=== PATIENT | female | born 1935 | race Caucasian/White ===

== ENCOUNTER 2016-06-20 08:18 | Outpatient (CLI) | payer MEDICARE, BC | END 2016-06-20 08:19 | disposition home or self-care (01) | DX: I48.0 Paroxysmal atrial fibrillation (principal); R42 Dizziness and giddiness; I95.0 Idiopathic hypotension; I10 Essential (primary) hypertension; I42.9 Cardiomyopathy, unspecified; Z95.0 Presence of cardiac pacemaker; E78.5 Hyperlipidemia, unspecified; J34.89 Other specified disorders of nose and nasal sinuses; R55 Syncope and collapse ==

== ENCOUNTER 2016-06-20 08:21 | Outpatient (CLI) | payer MEDICARE, BC | END 2016-06-20 08:22 | disposition home or self-care (01) | DX: I48.91 Unspecified atrial fibrillation (principal) ==

== ENCOUNTER 2016-07-18 10:55 | Outpatient (CLI) | payer MEDICARE, BC | END 2016-07-18 10:56 | disposition home or self-care (01) | DX: I48.91 Unspecified atrial fibrillation (principal) ==

== ENCOUNTER 2016-08-14 08:00 | Outpatient (CLI) | payer MEDICARE, BC | END 2016-08-14 08:01 | disposition home or self-care (01) | DX: I48.91 Unspecified atrial fibrillation (principal) ==

== ENCOUNTER 2016-09-18 08:00 | Outpatient (CLI) | payer MEDICARE, BC | END 2016-09-18 08:01 | disposition home or self-care (01) | DX: I48.91 Unspecified atrial fibrillation (principal) ==

== ENCOUNTER 2016-09-18 08:50 | Outpatient (CLI) | payer MEDICARE, BC | END 2016-09-18 08:51 | disposition home or self-care (01) | DX: I42.9 Cardiomyopathy, unspecified (principal); I10 Essential (primary) hypertension; R06.00 Dyspnea, unspecified; I48.0 Paroxysmal atrial fibrillation; E78.5 Hyperlipidemia, unspecified; Z95.0 Presence of cardiac pacemaker; R42 Dizziness and giddiness; R55 Syncope and collapse ==

== ENCOUNTER 2016-10-15 09:35 | Outpatient (CLI) | payer MEDICARE, BC | END 2016-10-15 09:36 | disposition home or self-care (01) | DX: I48.91 Unspecified atrial fibrillation (principal) ==

== ENCOUNTER 2016-10-22 15:22 | Outpatient (CLI) | payer MEDICARE, BC | END 2016-10-22 15:23 | disposition home or self-care (01) | DX: I42.9 Cardiomyopathy, unspecified (principal); I48.0 Paroxysmal atrial fibrillation; R06.00 Dyspnea, unspecified; I10 Essential (primary) hypertension; E78.5 Hyperlipidemia, unspecified; Z95.0 Presence of cardiac pacemaker; R42 Dizziness and giddiness; R55 Syncope and collapse ==

== ENCOUNTER 2016-11-13 09:57 | Outpatient (CLI) | payer MEDICARE, BC | END 2016-11-13 09:58 | disposition home or self-care (01) | DX: I48.91 Unspecified atrial fibrillation (principal) ==

== ENCOUNTER 2016-12-11 08:00 | Outpatient (CLI) | payer MEDICARE, BC | END 2016-12-11 08:01 | disposition home or self-care (01) | LOC: LAB.N 08:00 | PROVIDERS: ATTEND Internal Medicine | DX: I48.91 Unspecified atrial fibrillation (principal) | CPT/HCPCS: 85610 ==

== ENCOUNTER 2016-12-22 13:43 | Outpatient (CLI) | payer MEDICARE, BC | END 2016-12-22 13:44 | disposition home or self-care (01) | LOC: LAB 13:43 | PROVIDERS: ATTEND Internal Medicine | DX: R07.2 Precordial pain (principal) | CPT/HCPCS: 36415; 84484 ==

== ENCOUNTER 2017-01-26 08:00 | Outpatient (CLI) | payer MEDICARE, BC | END 2017-01-26 08:01 | disposition home or self-care (01) | LOC: LAB.N 08:00 | PROVIDERS: ATTEND Internal Medicine | DX: I48.91 Unspecified atrial fibrillation (principal) | CPT/HCPCS: 85610 ==

== ENCOUNTER 2017-02-11 12:35 | Emergency (ER) | payer MEDICARE, BC ==
--- NOTE | 2017-02-11 13:11 | ED Physician Documentation ---
PD HPI CHEST PAIN - Stated complaint Stated Complaint: CHILLS - Chief complaint Chief Complaint: Fever - History obtained from History obtained from: Patient - History of Present Illness Timing - onset: Today (onset of chills, feverish, general weakness, with some feeling pain left/central chest. Had pacer replaced 2 days ago in [place], Dr. Connell. [place] okay yesterday and this morning.) Timing - onset during: Light activity Timing - duration: Hours (3) Timing - details: Abrupt onset, Waxing and waning Quality: Aching, Pain Location: Substernal, Left chest Radiation: No: Jaw, Neck, Back, Abdominal, Left upper extremity, Right upper extremity, Other Worsened by: Inspiration, Movement Associated symptoms: Shortness of air. No: Nausea, Vomiting, Feeling faint / dizzy, Cough Similar symptoms before: Has not had sx before Recently seen: Clinic, Surgery (pacemaker placed 2 days ago) Review of Systems Constitutional: reports: Fever (subjective; friend took her temp and it was 99.) , Myalgias Nose: denies: Rhinorrhea / runny nose, Congestion Throat: denies: Sore throat Respiratory: reports: Cough (mild today). denies: Wheezing GI: denies: Abdominal Pain, Nausea, Vomiting Skin: reports: Other (surgical site left chest for recent pacer.). denies: Rash Musculoskeletal: denies: Extremity swelling Neurologic: reports: Generalized weakness. 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: Hysterectomy Cardiovascular: Pacemaker HEENT: Cataracts - Present Medications Home Medications: Ambulatory Orders Medication Instructions Recorded Confirmed Warfarin [Coumadin] 5 mg PO DAILY 06/17/13 02/11/17 Carvedilol 12.5 mg PO QID 10/24/15 02/11/17 Calcium Carbonate [Antacid] 1,000 mg PO BID 11/22/15 02/11/17 Cholecalciferol (Vitamin D3) 1,000 unit PO DAILY 11/22/15 02/11/17 [Vitamin D3] Potassium Chloride [Micro-K] 3 tab PO DAILY 11/22/15 02/11/17 Benzonatate [Tessalon] 100 mg PO TID PRN #25 capsule 03/23/16 02/11/17 Dexamethasone [Decadron] 4 mg PO DAILY #5 tablet 03/23/16 02/11/17 Doxycycline Hyclate 100 mg PO BID #14 tablet 03/23/16 02/11/17 HYDROcod/ACETAM 5/325 [[place] 5/325] 1 tab PO Q6H PRN #15 tablet 02/11/17 - Allergies Allergies/Adverse Reactions: Allergies Allergy/AdvReac Type Severity Reaction Status Date / Time clindamycin Allergy Intermediate swelling Verified 06/17/13 14:14 Penicillins Allergy Intermediate swelling, Verified 06/17/13 14:14 SOB streptomycin [Streptomycin] Allergy Intermediate swelling Verified 06/17/13 14: 14 Sulfa (Sulfonamide Allergy Intermediate swelling Verified 06/17/13 14:17 Antibiotics) Tetanus Vaccines and Toxoid Allergy Intermediate swelling Verified 06/17/13 14: 17 tetracycline [Tetracycline] Allergy Intermediate swelling Verified 06/17/13 14: 14 erythromycin base Allergy Edema Verified 10/24/15 07:04 - Social History Does the pt smoke?: No Smoking Status: Never smoker PD ED PE NORMAL - Vitals Vital signs reviewed: Yes - General General: Alert and oriented X 3, Well developed/nourished - HEENT HEENT: Ears normal, Moist mucous membranes, Pharynx benign - Neck Neck: Supple, no meningeal sign, No adenopathy - Cardiac Cardiac: RRR, No murmur - Respiratory Respiratory: Clear bilaterally, Other (left chest wall with pacer pocket having mild bruising and warmth, not significantly red. No drainage. Local tenderness. ) - Abdomen Abdomen: Soft, Non tender - Derm Derm: Normal color, Warm and dry - Extremities Extremities: No tenderness to palpate, No edema, No calf tenderness / cord - Neuro Neuro: Alert and oriented X 3, No motor deficit, Normal speech Results - Vitals Vitals: Vital Signs - 24 hr 02/11/17 02/11/17 02/11/17 13:03 13:30 15:27 Temperature 37.5 C Heart Rate 60 60 Respiratory 22 16 Rate Blood Pressure 148/65 H O2 Saturation 100 95 02/11/17 02/11/17 15:29 16:20 Temperature 37.1 C Heart Rate 61 Respiratory 18 Rate Blood Pressure 148/66 H 144/69 H O2 Saturation 95 Oxygen O2 Source Room air - Labs Labs: Laboratory Tests 02/11/17 02/11/17 02/11/17 15:00 15:00 15:00 WBC 8.7 RBC 4.34 Hgb 12.7 Hct 38.2 MCV 88.0 MCH 29.2 MCHC 33.2 RDW 13.7 Plt Count 166 MPV 9.3 Neut # 7.6 H Lymph # 0.5 L [place] # 0.5 Eos # 0.0 Baso # 0.0 Absolute Nucleated RBC 0.00 Nucleated RBCs 0.0 ESR PT 30.5 H INR 2.7 H Sodium 137 Potassium 3.6 Chloride 103 Carbon Dioxide 26 Anion Gap 8.0 BUN 18 Creatinine 0.8 Estimated GFR (MDRD) 69 L Glucose 110 H Calcium 8.8 Magnesium 1.8 Total Bilirubin 2.4 H AST 27 ALT 20 Alkaline Phosphatase 71 C-Reactive Protein < 1.0 Total Protein 7.0 Albumin 4.3 Globulin 2.7 Albumin/Globulin Ratio 1.6 Lipase 24 02/11/17 15:00 WBC RBC Hgb Hct MCV MCH MCHC RDW Plt Count MPV Neut # Lymph # [place] # Eos # Baso # Absolute Nucleated RBC Nucleated RBCs ESR 16 PT INR Sodium Potassium Chloride Carbon Dioxide Anion Gap BUN Creatinine Estimated GFR (MDRD) Glucose Calcium Magnesium Total Bilirubin AST ALT Alkaline Phosphatase C-Reactive Protein Total Protein Albumin Globulin Albumin/Globulin Ratio Lipase - Rads (name of study) chest Radiology: Prelim report reviewed, EMP read contemporaneously (no acute process) PD MEDICAL DECISION MAKING - ED course Complexity details: reviewed results, re-evaluated patient (she is doing okay, given some pain meds. Discussed with her to want to see if worsening symptoms or just improve (more inflammation or side effect of quinolone). She is okay going home and f/u with PMD or here in a day. ), considered differential, d/w patient, d/w home energy consultant supervisor (Dr. Connell, surgeon, cell, who said to consider OBS if concerned about general condition, otherwise to see if further symptoms in next day. ) Departure - Departure Disposition: 01 Home, Self Care Clinical Impression: Pleuritic chest pain, Status post placement of cardiac pacemaker Condition: Stable Record reviewed to determine appropriate education?: Yes Follow-Up: Salvador Webster MD [Primary Care Provider] - Prescriptions: HYDROcod/ACETAM 5/325 [[place] 5/325] 1 tab PO Q6H PRN #15 tablet PRN Reason: Pain Comments: Discontinue the levofloxacin antibiotic in case you are having some reaction to that. The low-grade temperature elevation this early on after the procedure may be more indicative of an inflammatory response. No signs of obvious infection at this point, but want to watch for evolving symptoms. Continue your other usual medications. Add Tylenol or hydrocodone for pain if needed. Recheck here in the ER or Dr. Hylton office tomorrow or the next day at the latest. Return sooner if you have higher fever, worse pain, trouble breathing, other illness such as vomiting or diarrhea. Discharge Date/Time: 02/11/17 16:20
--- NOTE | 2017-02-11 14:27 | XRAY Preliminary Report ---
Exam: XR Chest 2 View PA/LAT IMPRESSION: Chronic findings. No acute disease. [facility] SITE ID: [id number]
--- NOTE | 2017-02-11 14:29 | XRAY Report ---
EXAM: CHEST RADIOGRAPHY EXAM DATE: 02/11/2017 01:55 PM. CLINICAL HISTORY: Feverish/chills, pacer placed 2 days ago. COMPARISON: 03/23/2016. TECHNIQUE: 2 views. FINDINGS: Lungs/Pleura: Hyperexpanded with flattened diaphragm and coarse lung markings. No definite localized infiltrate, consolidation, effusion, or pneumothorax. Mediastinum: Mild cardiomegaly, probably unchanged. Upper lobe vessels not distended. Other: Permanent pacemaker on the left with intact leads extending to expected locations of right atr ium and right ventricle. Degenerative and other chronic findings. IMPRESSION: Chronic findings. No acute disease. [facility] Referring Provider Line: [phone] SITE ID: [id number]
[2017-02-11 15:08] LABS: BASOPHILS % (AUTO) 0.3 %; EOSINOPHILS % (AUTO) 0.5 %; HCT - HEMATOCRIT 38.2 % (37.0-47.0); HGB - HEMOGLOBIN 12.7 g/dL (12.0-16.0); LYMPHOCYTES # (AUTO) 0.5 10^3/uL (1.5-3.5); LYMPHOCYTES % (AUTO) 6.1 %; MEAN CORPUSCULAR HEMOGLOBIN 29.2 pg (27.0-31.0); MEAN CORPUSCULAR HGB CONC 33.2 g/dL (32.0-36.0); MEAN PLATELET VOLUME 9.3 fL (7.9-10.8); MONOCYTES # (AUTO) 0.5 10^3/uL (0.0-1.0); MONOCYTES % (AUTO) 5.5 %; NEUTROPHILS # (AUTO) 7.6 10^3/uL (1.5-6.6); NEUTROPHILS % (AUTO) 87.6 %; RED BLOOD COUNT 4.34 10^6/uL (4.20-5.40); RED CELL DISTRIBUTION WIDTH 13.7 % (12.0-15.0); UNCORRECTED WHITE BLOOD COUNT 8.7 x10^3/uL; WHITE BLOOD COUNT 8.7 x10^3/uL (4.8-10.8)
[2017-02-11 15:19] LABS: INR 2.7 (0.8-1.2); PT - PROTHROMBIN TIME 30.5 secs (9.9-12.6)
[2017-02-11] MEDS ORDERED: HYDROcod/ACETAM 5/325 MG TABLET PO STA (15:19)
[2017-02-11 15:25] LABS: ALBUMIN/GLOBULIN RATIO 1.6 (1.0-2.2); BILIRUBIN,TOTAL 2.4 mg/dL (0.2-1.0); BUN - BLOOD UREA NITROGEN 18 mg/dL (6-20); CALCIUM 8.8 mg/dL (8.5-10.3); CARBON DIOXIDE - CO2 26 mmol/L (21-32); CHLORIDE 103 mmol/L (101-111); CREATININE 0.8 mg/dL (0.4-1.0); GFR - MDRD 69 (>89); GLUCOSE 110 mg/dL (70-100); LIPASE 24 U/L (22-51); MAGNESIUM 1.8 mg/dL (1.7-2.8); POTASSIUM 3.6 mmol/L (3.5-5.0); SODIUM 137 mmol/L (135-145)
[2017-02-11] MEDS ORDERED: HYDROcod/ACETAM 5/325 MG TABLET ONE (15:26)
[2017-02-11] MEDS ORDERED: KETOROLAC 60 MG/2 ML VIAL IVP STA (15:38)
[2017-02-11] MEDS ORDERED: KETOROLAC 60 MG/2 ML VIAL IM STA (15:45)
[2017-02-11] MEDS ORDERED: KETOROLAC 30 MG/ML VIAL ONE (15:50)
[2017-02-11 16:20] VITALS: BP 144/69
== END 2017-02-11 16:20 | disposition home or self-care (01) ==
LOC: ED 12:35
DX: R07.81 Pleurodynia (principal); Z95.0 Presence of cardiac pacemaker; I10 Essential (primary) hypertension; I48.91 Unspecified atrial fibrillation; Z79.01 Long term (current) use of anticoagulants; M19.90 Unspecified osteoarthritis, unspecified site
CPT/HCPCS: 36415; 71020; 80053; 83690; 83735; 85025; 85610; 85651; 86140; 87040; 93005; 96372; 99283; 99284; A9270

== ENCOUNTER 2017-03-05 16:35 | Outpatient (CLI) | payer MEDICARE, BC ==
[2017-03-05 18:27] LABS: CALCIUM 8.6 mg/dL (8.5-10.3); CREATININE 0.8 mg/dL (0.4-1.0); POTASSIUM 4.2 mmol/L (3.5-5.0)
[2017-03-05 18:36] LABS: BASOPHILS % (AUTO) 0.5 %; EOSINOPHILS # (AUTO) 0.1 10^3/uL (0.0-0.7); EOSINOPHILS % (AUTO) 0.7 %; HCT - HEMATOCRIT 37.4 % (37.0-47.0); HGB - HEMOGLOBIN 12.1 g/dL (12.0-16.0); LYMPHOCYTES % (AUTO) 12.5 %; MEAN CORPUSCULAR HEMOGLOBIN 29.1 pg (27.0-31.0); MEAN CORPUSCULAR HGB CONC 32.3 g/dL (32.0-36.0); MEAN CORPUSCULAR VOLUME 90.1 fL (81.0-99.0); MEAN PLATELET VOLUME 9.9 fL (7.9-10.8); MONOCYTES # (AUTO) 0.8 10^3/uL (0.0-1.0); MONOCYTES % (AUTO) 9.6 %; NEUTROPHILS # (AUTO) 6.2 10^3/uL (1.5-6.6); NEUTROPHILS % (AUTO) 76.7 %; NUCLEATED RED BLOOD CELLS AUTO 0.1 /100WBC; RED BLOOD COUNT 4.15 10^6/uL (4.20-5.40); RED CELL DISTRIBUTION WIDTH 13.3 % (12.0-15.0)
== END 2017-03-05 16:36 | disposition home or self-care (01) ==
LOC: LAB.R 16:35
PROVIDERS: ATTEND Internal Medicine
DX: R50.9 Fever, unspecified (principal)
CPT/HCPCS: 80048; 85025; 87275; 87276

== ENCOUNTER 2017-03-12 12:01 | Outpatient (CLI) | payer MEDICARE, BC ==
--- NOTE | 2017-03-12 18:05 | XRAY Report ---
TWO VIEW CHEST: 03/12/2017 CLINICAL INDICATION: Ongoing fever. COMPARISON: 02/11/2017 Frontal and lateral views of the chest demonstrate an enlarged cardiac silhouette. Left subclavian d ual chamber pacemaker is stable. There has been interval development of a left basilar infiltrate wi th small left effusion. No pneumothorax is present. IMPRESSION: NEW LEFT BASILAR INFILTRATE WITH SMALL LEFT EFFUSION. JOB #: [id number] EXT JOB #:[id number]
== END 2017-03-12 12:02 | disposition home or self-care (01) ==
LOC: DI 12:01
PROVIDERS: ATTEND Internal Medicine
DX: I48.91 Unspecified atrial fibrillation (principal); R91.8 Other nonspecific abnormal finding of lung field; J90 Pleural effusion, not elsewhere classified; Z95.0 Presence of cardiac pacemaker
CPT/HCPCS: 71020; 85610

== ENCOUNTER 2017-03-16 14:46 | Outpatient (CLI) | payer MEDICARE, BC | END 2017-03-16 14:47 | disposition home or self-care (01) | LOC: LAB.N 14:46 | PROVIDERS: ATTEND Internal Medicine | DX: I48.91 Unspecified atrial fibrillation (principal) | CPT/HCPCS: 85610 ==

== ENCOUNTER 2017-03-25 14:59 | Outpatient (CLI) | payer MEDICARE, BC ==
[2017-03-25 14:11] LABS: ALBUMIN/GLOBULIN RATIO 1.1 (1.0-2.2); BILIRUBIN,TOTAL 1.4 mg/dL (0.2-1.0); CALCIUM 8.9 mg/dL (8.5-10.3); CREATININE 0.9 mg/dL (0.4-1.0)
[2017-03-27 21:03] LABS: HDL LARGE 6256 nmol/L (5038-17886); LDL MEDIUM 392 nmol/L (121-397); LDL PARTICLE NUMBER 1528 nmol/L (1016-2185); LDL PATTERN A Pattern (A); LDL PEAK SIZE 219.2 Angstrom (> OR = 218.2); LDL SMALL 263 nmol/L (115-386)
[2017-03-27 22:26] LABS: TEST RESULT REPORT
== END 2017-03-25 15:00 | disposition home or self-care (01) ==
LOC: LAB.N 14:59
PROVIDERS: ATTEND Specialist
DX: I42.9 Cardiomyopathy, unspecified (principal); I48.0 Paroxysmal atrial fibrillation; R06.00 Dyspnea, unspecified; E78.5 Hyperlipidemia, unspecified; I48.91 Unspecified atrial fibrillation; I10 Essential (primary) hypertension; Z95.0 Presence of cardiac pacemaker; R42 Dizziness and giddiness; R55 Syncope and collapse
CPT/HCPCS: 36415; 80053; 81599; 82465; 83704; 83718; 83735; 83880; 84478; 85610

== ENCOUNTER 2017-05-18 10:55 | Outpatient (CLI) | payer MEDICARE, BC | END 2017-05-18 10:56 | disposition home or self-care (01) | LOC: LAB.N 10:55 | PROVIDERS: ATTEND Internal Medicine | DX: I48.91 Unspecified atrial fibrillation (principal) | CPT/HCPCS: 85610 ==

== ENCOUNTER 2017-06-18 13:21 | Outpatient (CLI) | payer MEDICARE, BC | END 2017-06-18 13:22 | disposition home or self-care (01) | LOC: LAB.N 13:21 | PROVIDERS: ATTEND Internal Medicine | DX: I48.91 Unspecified atrial fibrillation (principal) | CPT/HCPCS: 85610 ==

== ENCOUNTER 2017-07-27 10:04 | Outpatient (CLI) | payer MEDICARE, BC | END 2017-07-27 10:05 | disposition home or self-care (01) | LOC: LAB.N 10:04 | PROVIDERS: ATTEND Internal Medicine | DX: I48.91 Unspecified atrial fibrillation (principal) | CPT/HCPCS: 85610 ==

== ENCOUNTER 2017-08-03 08:00 | Outpatient (CLI) | payer MEDICARE, BC | END 2017-08-03 08:01 | disposition home or self-care (01) | LOC: LAB.N 08:00 | PROVIDERS: ATTEND Internal Medicine | DX: I48.91 Unspecified atrial fibrillation (principal) | CPT/HCPCS: 85610 ==

== ENCOUNTER 2017-08-17 08:00 | Outpatient (CLI) | payer MEDICARE, BC | END 2017-08-17 08:01 | disposition home or self-care (01) | LOC: LAB.N 08:00 | PROVIDERS: ATTEND Internal Medicine | DX: I48.91 Unspecified atrial fibrillation (principal) | CPT/HCPCS: 85610 ==

== ENCOUNTER 2017-09-02 09:52 | Outpatient (CLI) | payer MEDICARE, BC ==
[2017-09-02 12:33] LABS: BASOPHILS # (AUTO) 0.1 10^3/uL (0.0-0.1); BASOPHILS % (AUTO) 0.8 %; EOSINOPHILS # (AUTO) 0.2 10^3/uL (0.0-0.7); EOSINOPHILS % (AUTO) 2.9 %; HGB - HEMOGLOBIN 14.3 g/dL (12.0-16.0); LYMPHOCYTES # (AUTO) 1.2 10^3/uL (1.5-3.5); LYMPHOCYTES % (AUTO) 18.4 %; MEAN CORPUSCULAR HEMOGLOBIN 29.4 pg (27.0-31.0); MEAN CORPUSCULAR HGB CONC 33.3 g/dL (32.0-36.0); MEAN CORPUSCULAR VOLUME 88.1 fL (81.0-99.0); MEAN PLATELET VOLUME 9.8 fL (7.9-10.8); MONOCYTES # (AUTO) 0.6 10^3/uL (0.0-1.0); MONOCYTES % (AUTO) 8.8 %; NEUTROPHILS # (AUTO) 4.7 10^3/uL (1.5-6.6); NEUTROPHILS % (AUTO) 69.1 %; PLT - PLATELET COUNT 211 10^3/uL (130-450); RED BLOOD COUNT 4.87 10^6/uL (4.20-5.40); RED CELL DISTRIBUTION WIDTH 14.8 % (12.0-15.0); WHITE BLOOD COUNT 6.8 x10^3/uL (4.8-10.8)
[2017-09-02 12:55] LABS: ALBUMIN 4.7 g/dL (3.2-5.5); ALBUMIN/GLOBULIN RATIO 1.5 (1.0-2.2); BILIRUBIN,TOTAL 2.3 mg/dL (0.2-1.0); CALCIUM 9.4 mg/dL (8.5-10.3); CREATININE 0.7 mg/dL (0.4-1.0); TOTAL PROTEIN 7.9 g/dL (6.7-8.2)
== END 2017-09-02 09:53 | disposition home or self-care (01) ==
LOC: LAB.N 09:52
PROVIDERS: ATTEND Internal Medicine
DX: M81.0 Age-related osteoporosis without current pathological fracture (principal); I10 Essential (primary) hypertension; I48.91 Unspecified atrial fibrillation; Z79.899 Other long term (current) drug therapy
CPT/HCPCS: 36415; 80053; 82306; 85025

== ENCOUNTER 2017-09-14 12:14 | Outpatient (CLI) | payer MEDICARE, BC ==
--- NOTE | 2017-09-15 13:31 | Mammography Report ---
DIGITAL SCREENING MAMMOGRAM: 09/14/2017 HISTORY: Currently asymptomatic. COMPARISON: 03/21/2013, 03/13/2011 and 01/12/2009. TECHNIQUE: Bilateral digital CC and MLO projections. FINDINGS: There are scattered fibroglandular densities. There is a pacemaker generator in the left axilla. There is no dominant mass, architectural distortion, skin thickening, suspicious clustered microcalcifications, or obvious interval change. Vascular calcification present. IMPRESSION: NEGATIVE. BI-RADS CATEGORY 1 - NEGATIVE. SUGGEST RETURN TO ROUTINE SCREENING IN 12 MONTHS. STANDARD QUALIFYING STATEMENTS: 1. This examination was reviewed with the aid of Computer-Aided Detection (CAD). 2. A negative or benign imaging report should not delay biopsy if clinically suspicious findings are present. Consider surgical consultation if warranted. More than 5% of cancers are not identified by imaging. 3. Dense breasts may obscure an underlying neoplasm. TD: 09/15/2017 13:30
== END 2017-09-14 12:15 | disposition home or self-care (01) ==
LOC: DI 12:14
PROVIDERS: ATTEND Internal Medicine
DX: Z12.31 Encounter for screening mammogram for malignant neoplasm of breast (principal)
CPT/HCPCS: 77067

== ENCOUNTER 2017-09-17 10:49 | Outpatient (CLI) | payer MEDICARE, BC | END 2017-09-17 10:50 | disposition home or self-care (01) | LOC: LAB.N 10:49 | PROVIDERS: ATTEND Internal Medicine | DX: I48.91 Unspecified atrial fibrillation (principal) | CPT/HCPCS: 85610 ==

== ENCOUNTER 2017-10-16 08:39 | Outpatient (CLI) | payer MEDICARE, BC | END 2017-10-16 08:40 | disposition home or self-care (01) | LOC: LAB.N 08:39 | PROVIDERS: ATTEND Internal Medicine | DX: I48.91 Unspecified atrial fibrillation (principal) | CPT/HCPCS: 85610 ==

== ENCOUNTER 2017-11-16 08:00 | Outpatient (CLI) | payer MEDICARE, BC | END 2017-11-16 08:01 | disposition home or self-care (01) | LOC: LAB.N 08:00 | PROVIDERS: ATTEND Internal Medicine | DX: I48.91 Unspecified atrial fibrillation (principal) | CPT/HCPCS: 85610 ==

== ENCOUNTER 2017-12-17 11:17 | Outpatient (CLI) | payer MEDICARE, BC | END 2017-12-17 11:18 | disposition home or self-care (01) | LOC: LAB.N 11:17 | PROVIDERS: ATTEND Internal Medicine | DX: I48.91 Unspecified atrial fibrillation (principal) | CPT/HCPCS: 85610 ==

== ENCOUNTER 2017-12-29 11:02 | Outpatient (CLI) | payer MEDICARE, BC | END 2017-12-29 11:03 | LOC: LAB.N 11:02 | PROVIDERS: ATTEND Internal Medicine | DX: I48.91 Unspecified atrial fibrillation (principal) | CPT/HCPCS: 85610 ==

== ENCOUNTER 2018-01-12 08:00 | Outpatient (CLI) | payer MEDICARE, BC | END 2018-01-12 08:01 | disposition home or self-care (01) | LOC: LAB.N 08:00 | PROVIDERS: ATTEND Internal Medicine | DX: I48.91 Unspecified atrial fibrillation (principal) | CPT/HCPCS: 85610 ==

== ENCOUNTER 2018-02-11 11:31 | Outpatient (CLI) | payer MEDICARE, BC | END 2018-02-11 11:32 | disposition home or self-care (01) | LOC: LAB.N 11:31 | PROVIDERS: ATTEND Internal Medicine | DX: I48.91 Unspecified atrial fibrillation (principal) | CPT/HCPCS: 85610 ==

== ENCOUNTER 2018-02-22 08:00 | Outpatient (CLI) | payer MEDICARE, BC ==
[2018-02-22 13:29] LABS: ALBUMIN 4.1 g/dL (3.2-5.5); ALBUMIN/GLOBULIN RATIO 1.5 (1.0-2.2); BILIRUBIN,TOTAL 2.1 mg/dL (0.2-1.0); CALCIUM 8.9 mg/dL (8.5-10.3); CREATININE 0.8 mg/dL (0.4-1.0); MAGNESIUM 2.2 mg/dL (1.7-2.8); TOTAL PROTEIN 6.9 g/dL (6.7-8.2)
== END 2018-02-22 08:01 | disposition home or self-care (01) ==
LOC: LAB.N 08:00
PROVIDERS: ATTEND Specialist
DX: I48.91 Unspecified atrial fibrillation (principal); E78.2 Mixed hyperlipidemia; I48.0 Paroxysmal atrial fibrillation
CPT/HCPCS: 36415; 80053; 81599; 82465; 83704; 83718; 83735; 84478; 85610

== ENCOUNTER 2018-03-08 08:00 | Outpatient (CLI) | payer MEDICARE, BC | END 2018-03-08 08:01 | disposition home or self-care (01) | LOC: LAB.N 08:00 | PROVIDERS: ATTEND Internal Medicine | DX: I48.91 Unspecified atrial fibrillation (principal) | CPT/HCPCS: 85610 ==

== ENCOUNTER 2018-03-20 11:02 | Emergency (ER) | payer MEDICARE, BC ==
--- NOTE | 2018-03-20 12:03 | XRAY Report ---
Reason: right ankle injury Procedure Date: 03/20/2018 Accession Number: [id number] / [id number] Procedure: XR - Ankle 3 View RT CPT Code: FULL RESULT: EXAM: RIGHT ANKLE RADIOGRAPHY EXAM DATE: 03/20/2018 11:50 AM. CLINICAL HISTORY: Right ankle injury. COMPARISON: None. TECHNIQUE: 3 views. FINDINGS: Bones: The bones appear demineralized. However, no acute fracture is demonstrated. Small posterior calcaneal spur is present. Joints: No dislocation or subluxation. Alignment of the ankle mortise and talar dome is within normal limits. Soft Tissues: Moderate soft tissue swelling is present over the anterior and lateral aspects of the ankle. IMPRESSION: Soft tissue swelling over the anterior and lateral aspects of the ankle. No acute fracture or malalignment. [facility]
--- NOTE | 2018-03-20 12:14 | ED Physician Documentation ---
PD HPI LOWER EXT INJURY - Stated complaint Stated Complaint: FT PX - Chief complaint Chief Complaint: Ext Problem - History obtained from History obtained from: Patient - History of Present Illness PD HPI LOW EXT INJURY LOCATION: Right, Ankle, Foot Type of injury: Fall (down 1 step), Twist Where injury occurred: Home Timing - onset: Today Timing - duration: Days (1) Timing - details: Abrupt onset Pain level max: 5 Pain level now: 5 Improved by: Rest, Ice, Immobilization Worsened by: Moving, Palpating Associated symptoms: Swelling, Discolored (bruising). No: Weakness, Numbness, Tingling - Additional information Additional information: did not strike head. 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 Cardiovascular: Pacemaker HEENT: Cataracts - Present Medications Home Medications: Ambulatory Orders Medication Instructions Recorded Confirmed Warfarin [Coumadin] 5 mg PO DAILY 06/17/13 03/20/18 Carvedilol 12.5 mg PO BID 10/24/15 03/20/18 - Allergies Allergies/Adverse Reactions: Allergies Allergy/AdvReac Type Severity Reaction Status Date / Time clindamycin Allergy Intermediate swelling Verified 03/20/18 11:33 Penicillins Allergy Intermediate swelling, Verified 03/20/18 11:33 SOB streptomycin [Streptomycin] Allergy Intermediate swelling Verified 03/20/18 11:33 Sulfa (Sulfonamide Allergy Intermediate swelling Verified 03/20/18 11:33 Antibiotics) Tetanus Vaccines and Toxoid Allergy Intermediate swelling Verified 03/20/18 11:33 tetracycline [Tetracycline] Allergy Intermediate swelling Verified 03/20/18 11:33 erythromycin base Allergy Edema Verified 03/20/18 11:33 - Social History Does the pt smoke?: No Smoking Status: Never smoker Does the pt drink ETOH?: Yes ETOH Use: Wine Does the pt have substance abuse?: No - Immunizations Immunizations are current?: No Immunizations: Other immun current PD ED PE NORMAL - Vitals Vital signs reviewed: Yes - General General: Alert and oriented X 3, No acute distress - HEENT HEENT: Atraumatic - Neck Neck: Supple, no meningeal sign, No bony TTP - Back Back: No spinal TTP - Derm Derm: Warm and dry - Extremities Extremities: Other (R ankle - swelling and TTP over lateral malleolus and 5th MT. NVI. o/w normal foot exam.) - Neuro Neuro: Alert and oriented X 3 Results - Vitals Vitals: Vital Signs - 24 hr 03/20/18 11:20 Temperature 36.2 C L Heart Rate 69 Respiratory 18 Rate Blood Pressure 173/95 H O2 Saturation 97 Oxygen O2 Source Room air - Rads (name of study) Right ankle x-ray Radiology: Prelim report reviewed, EMP read contemporaneously, See rad report (Soft tissue swelling without acute fracture or dislocation) Right foot x-ray Radiology: Prelim report reviewed, EMP read contemporaneously, See rad report (Soft tissue swelling without acute fracture or dislocation) PD MEDICAL DECISION MAKING - ED course Complexity details: reviewed results, re-evaluated patient, considered differential, d/w patient ED course: Patient is an 82-year-old female who presents to the emergency department after missing a step today and rolling her ankle and foot. Has swelling to the lateral aspect of the foot and ankle as well as tenderness. No acute findings on x-ray. Georgi bandage was applied for compression as she is on warfarin. She was also placed in a gel splint and given a walker. She is ambulating actually fairly well with this. We will have her continue ice and elevation at home. Patient counseled regarding signs and symptoms for which I believe and urgent re-evaluation would be necessary. Patient with good understanding of and agreement to plan and is comfortable going home at this time This document was made in part using voice recognition software. While efforts are made to proofread this document, sound alike and grammatical errors may occur. - Sepsis Event Vital Signs: Vital Signs - 24 hr 03/20/18 11:20 Temperature 36.2 C L Heart Rate 69 Respiratory 18 Rate Blood Pressure 173/95 H O2 Saturation 97 Oxygen O2 Source Room air Departure - Departure Disposition: 01 Home, Self Care Clinical Impression: Right ankle sprain Qualifiers: Encounter type: initial encounter Involved ligament of ankle: unspecified ligament Qualified Code(s): S93.401A - Sprain of unspecified ligament of right ankle, initial encounter Condition: Good Instructions: ED Sprain Ankle W X Ray Follow-Up: Salvador Webster MD [Primary Care Provider] - Within 1 week Comments: Your x-rays do not show any fractures today. You may bear weight as tolerated. Return if you worsen. You may use Tylenol as needed for pain
[2018-03-20] MEDS ORDERED: ACETAMINOPHEN 325 MG TABLET PO STA (12:39)
--- NOTE | 2018-03-20 13:06 | XRAY Report ---
Reason: fall R foot pain Procedure Date: 03/20/2018 Accession Number: [id number] / [id number] Procedure: XR - Foot 3 View RT CPT Code: FULL RESULT: EXAM: RIGHT FOOT RADIOGRAPHY EXAM DATE: 03/20/2018 12:32 PM. CLINICAL HISTORY: Fall R foot pain. COMPARISON: None. TECHNIQUE: 3 views. FINDINGS: Bones: Subtle calcific density at the lateral aspect of the distal calcaneus may represent a subtle avulsion fracture. No other fracture lines are seen. Joints: Normal. No subluxations. Soft Tissues: Soft tissue swelling at the lateral aspect of the hindfoot. IMPRESSION: 1. Probable subtle avulsion fracture of the lateral aspect of the distal calcaneus with surrounding soft tissue swelling. [facility]
[2018-03-20 13:08] VITALS: BP 152/87
== END 2018-03-20 13:23 | disposition home or self-care (01) ==
LOC: ED 11:02
DX: I10 Essential (primary) hypertension (principal); I48.91 Unspecified atrial fibrillation; Z79.01 Long term (current) use of anticoagulants; S93.401A Sprain of unspecified ligament of right ankle, initial encounter; W10.9XXA Fall (on) (from) unspecified stairs and steps, initial encounter; X50.1XXA Overexertion from prolonged static or awkward postures, initial encounter; Y92.009 Unspecified place in unspecified non-institutional (private) residence as the place of occurrence of the external cause
CPT/HCPCS: 73610; 73630; 85610; 99283; A9270

== ENCOUNTER 2018-04-05 10:42 | Outpatient (CLI) | payer MEDICARE, BC | END 2018-04-05 10:43 | disposition home or self-care (01) | LOC: LAB.N 10:42 | PROVIDERS: ATTEND Internal Medicine | DX: I48.91 Unspecified atrial fibrillation (principal) | CPT/HCPCS: 85610 ==

== ENCOUNTER 2018-05-03 13:16 | Outpatient (CLI) | payer MEDICARE, BC | END 2018-05-03 13:17 | disposition home or self-care (01) | LOC: LAB.N 13:16 | PROVIDERS: ATTEND Internal Medicine | DX: I48.91 Unspecified atrial fibrillation (principal) | CPT/HCPCS: 85610 ==

== ENCOUNTER 2018-06-03 09:27 | Outpatient (CLI) | payer MEDICARE, BC | END 2018-06-03 23:59 | disposition home or self-care (01) | LOC: LAB.N 09:27 | PROVIDERS: ATTEND Internal Medicine | DX: I48.91 Unspecified atrial fibrillation (principal) | CPT/HCPCS: 85610 ==

== ENCOUNTER 2018-06-22 08:00 | Outpatient (CLI) | payer MEDICARE, BC | END 2018-06-22 23:59 | disposition home or self-care (01) | LOC: LAB.N 08:00 | PROVIDERS: ATTEND Internal Medicine | DX: I48.91 Unspecified atrial fibrillation (principal) | CPT/HCPCS: 85610 ==

== ENCOUNTER 2018-07-06 08:00 | Outpatient (CLI) | payer MEDICARE, BC | END 2018-07-06 23:59 | disposition home or self-care (01) | LOC: LAB.N 08:00 | PROVIDERS: ATTEND Internal Medicine | DX: I48.91 Unspecified atrial fibrillation (principal) | CPT/HCPCS: 85610 ==

== ENCOUNTER 2018-08-02 08:00 | Outpatient (CLI) | payer MEDICARE, BC | END 2018-08-02 23:59 | disposition home or self-care (01) | LOC: LAB.N 08:00 | PROVIDERS: ATTEND Internal Medicine | DX: I48.91 Unspecified atrial fibrillation (principal) | CPT/HCPCS: 85610 ==

== ENCOUNTER 2018-08-26 08:15 | Outpatient (CLI) | payer MEDICARE, BC ==
[2018-08-26 13:33] LABS: ALBUMIN 4.1 g/dL (3.2-5.5); ALBUMIN/GLOBULIN RATIO 1.5 (1.0-2.2); BILIRUBIN,TOTAL 2.4 mg/dL (0.2-1.0); CALCIUM 8.8 mg/dL (8.5-10.3); CREATININE 0.8 mg/dL (0.4-1.0); TOTAL PROTEIN 6.9 g/dL (6.7-8.2)
[2018-08-28 23:51] LABS: HDL LARGE 5318 nmol/L (3966-11938); LDL PARTICLE NUMBER 1430 nmol/L (732-2035); LDL PATTERN A Pattern (A); LDL PEAK SIZE 221.1 Angstrom (> OR = 217.4); LDL SMALL 189 nmol/L (75-452)
== END 2018-08-26 23:59 | disposition home or self-care (01) ==
LOC: LAB.N 08:15
PROVIDERS: ATTEND Specialist
DX: I48.0 Paroxysmal atrial fibrillation (principal); E78.2 Mixed hyperlipidemia; I10 Essential (primary) hypertension
CPT/HCPCS: 36415; 80053; 81599; 82465; 83704; 83718; 83735; 84478

== ENCOUNTER 2018-09-20 08:00 | Outpatient (CLI) | payer MEDICARE, BC ==
[2018-09-20 13:19] LABS: CALCIUM 9.5 mg/dL (8.5-10.3); CREATININE 0.8 mg/dL (0.4-1.0)
== END 2018-09-20 23:59 | disposition home or self-care (01) ==
LOC: LAB.N 08:00
PROVIDERS: ATTEND Internal Medicine
DX: I48.91 Unspecified atrial fibrillation (principal); I48.0 Paroxysmal atrial fibrillation; Z79.01 Long term (current) use of anticoagulants; I42.9 Cardiomyopathy, unspecified
CPT/HCPCS: 36415; 80048; 83735; 85610

== ENCOUNTER 2018-10-22 08:00 | Outpatient (CLI) | payer MEDICARE, BC | END 2018-10-22 23:59 | disposition home or self-care (01) | LOC: LAB.N 08:00 | PROVIDERS: ATTEND Internal Medicine | DX: I48.91 Unspecified atrial fibrillation (principal); Z79.01 Long term (current) use of anticoagulants | CPT/HCPCS: 85610 ==

== ENCOUNTER 2018-10-29 11:30 | Outpatient (CLI) | payer MEDICARE, BC | END 2018-10-29 23:59 | disposition home or self-care (01) | LOC: LAB.N 11:30 | PROVIDERS: ATTEND Internal Medicine | DX: Z79.01 Long term (current) use of anticoagulants (principal); I48.91 Unspecified atrial fibrillation | CPT/HCPCS: 85610 ==

== ENCOUNTER 2018-11-10 08:00 | Outpatient (CLI) | payer MEDICARE, BC | END 2018-11-10 23:59 | disposition home or self-care (01) | LOC: LAB.N 08:00 | PROVIDERS: ATTEND Internal Medicine | DX: I48.91 Unspecified atrial fibrillation (principal); Z79.01 Long term (current) use of anticoagulants | CPT/HCPCS: 85610 ==

== ENCOUNTER 2018-12-09 11:20 | Outpatient (CLI) | payer MEDICARE, BC | END 2018-12-09 23:59 | disposition home or self-care (01) | LOC: LAB.N 11:20 | PROVIDERS: ATTEND Specialist | DX: I48.91 Unspecified atrial fibrillation (principal) | CPT/HCPCS: 36415; 80053; 83735; 85610 ==

== ENCOUNTER 2019-01-12 08:00 | Outpatient (CLI) | payer MEDICARE, BC ==
[2019-01-12 13:15] LABS: ALBUMIN/GLOBULIN RATIO 1.5 (1.0-2.2); BILIRUBIN,TOTAL 2.2 mg/dL (0.2-1.0); CALCIUM 8.8 mg/dL (8.5-10.3); CREATININE 1.1 mg/dL (0.4-1.0); TOTAL PROTEIN 6.6 g/dL (6.7-8.2)
== END 2019-01-12 08:01 | disposition home or self-care (01) ==
LOC: LAB.N 08:00
PROVIDERS: ATTEND Specialist
DX: I42.9 Cardiomyopathy, unspecified (principal); I48.0 Paroxysmal atrial fibrillation; Z79.01 Long term (current) use of anticoagulants
CPT/HCPCS: 36415; 80053; 83735; 85610

== ENCOUNTER 2019-02-10 08:00 | Outpatient (CLI) | payer MEDICARE, BC ==
[2019-02-10 18:48] LABS: ALBUMIN/GLOBULIN RATIO 1.5 (1.0-2.2); BILIRUBIN,TOTAL 1.9 mg/dL (0.2-1.0); CALCIUM 9.3 mg/dL (8.5-10.3); MAGNESIUM 2.1 mg/dL (1.7-2.8); TOTAL PROTEIN 6.7 g/dL (6.7-8.2)
== END 2019-02-10 23:59 | disposition home or self-care (01) ==
LOC: LAB.N 08:00
PROVIDERS: ATTEND Internal Medicine
DX: I48.0 Paroxysmal atrial fibrillation (principal); Z79.01 Long term (current) use of anticoagulants; I42.9 Cardiomyopathy, unspecified
CPT/HCPCS: 36415; 80053; 83735; 85610

== ENCOUNTER 2019-03-09 08:00 | Outpatient (CLI) | payer MEDICARE, BC | END 2019-03-09 23:59 | disposition home or self-care (01) | LOC: LAB.N 08:00 | PROVIDERS: ATTEND Internal Medicine | DX: Z79.01 Long term (current) use of anticoagulants (principal); I48.91 Unspecified atrial fibrillation | CPT/HCPCS: 85610 ==

== ENCOUNTER 2019-03-28 10:33 | Outpatient (CLI) | payer MEDICARE, BC | END 2019-03-28 10:34 | disposition home or self-care (01) | LOC: LAB.N 10:33 | PROVIDERS: ATTEND Internal Medicine | DX: Z79.01 Long term (current) use of anticoagulants (principal); I48.91 Unspecified atrial fibrillation | CPT/HCPCS: 85610 ==

== ENCOUNTER 2019-03-31 11:45 | Outpatient (CLI) | payer MEDICARE, BC ==
[2019-03-31 19:30] LABS: ALBUMIN 3.9 g/dL (3.2-5.5); ALBUMIN/GLOBULIN RATIO 1.4 (1.0-2.2); BILIRUBIN,TOTAL 1.3 mg/dL (0.2-1.0); CALCIUM 9.1 mg/dL (8.5-10.3); CREATININE 0.9 mg/dL (0.4-1.0); TOTAL PROTEIN 6.6 g/dL (6.7-8.2)
== END 2019-03-31 11:46 | disposition home or self-care (01) ==
LOC: LAB.N 11:45
PROVIDERS: ATTEND Internal Medicine
DX: I48.91 Unspecified atrial fibrillation (principal); K52.9 Noninfective gastroenteritis and colitis, unspecified; Z79.01 Long term (current) use of anticoagulants
CPT/HCPCS: 36415; 80053; 85610

== ENCOUNTER 2019-04-14 08:00 | Outpatient (CLI) | payer MEDICARE, BC | END 2019-04-14 23:59 | disposition home or self-care (01) | LOC: LAB.N 08:00 | PROVIDERS: ATTEND Internal Medicine | DX: Z79.01 Long term (current) use of anticoagulants (principal); I48.91 Unspecified atrial fibrillation | CPT/HCPCS: 85610 ==

== ENCOUNTER 2019-04-19 08:54 | Outpatient (CLI) | payer MEDICARE, BC ==
[2019-04-19 13:26] LABS: ALBUMIN 4.3 g/dL (3.2-5.5); ALBUMIN/GLOBULIN RATIO 1.5 (1.0-2.2); BILIRUBIN,TOTAL 1.4 mg/dL (0.2-1.0); CALCIUM 9.3 mg/dL (8.5-10.3); CREATININE 0.9 mg/dL (0.4-1.0); MAGNESIUM 2.2 mg/dL (1.7-2.8); TOTAL PROTEIN 7.2 g/dL (6.7-8.2)
== END 2019-04-19 23:59 | disposition home or self-care (01) ==
LOC: LAB.N 08:54
PROVIDERS: ATTEND Specialist
DX: I42.9 Cardiomyopathy, unspecified (principal); I48.0 Paroxysmal atrial fibrillation
CPT/HCPCS: 36415; 80053; 83735

== ENCOUNTER 2019-05-10 10:45 | Outpatient (CLI) | payer MEDICARE, BC | END 2019-05-10 23:59 | disposition home or self-care (01) | LOC: LAB.N 10:45 | PROVIDERS: ATTEND Internal Medicine | DX: Z79.01 Long term (current) use of anticoagulants (principal); I48.91 Unspecified atrial fibrillation | CPT/HCPCS: 85610 ==

== ENCOUNTER 2019-05-18 08:00 | Outpatient (CLI) | payer MEDICARE, BC ==
[2019-05-18 19:02] LABS: ALBUMIN 4.2 g/dL (3.2-5.5); ALBUMIN/GLOBULIN RATIO 1.6 (1.0-2.2); BILIRUBIN,TOTAL 1.8 mg/dL (0.2-1.0); CALCIUM 9.1 mg/dL (8.5-10.3); CREATININE 0.9 mg/dL (0.4-1.0); TOTAL PROTEIN 6.9 g/dL (6.7-8.2)
== END 2019-05-18 23:59 ==
LOC: LAB.N 08:00
PROVIDERS: ATTEND Internal Medicine
DX: R94.5 Abnormal results of liver function studies (principal)
CPT/HCPCS: 36415; 80053

== ENCOUNTER 2019-06-03 10:55 | Outpatient (CLI) | payer MEDICARE, BC | END 2019-06-03 23:59 | disposition home or self-care (01) | LOC: LAB.N 10:55 | PROVIDERS: ATTEND Internal Medicine | DX: Z79.01 Long term (current) use of anticoagulants (principal); I48.91 Unspecified atrial fibrillation | CPT/HCPCS: 85610 ==

== ENCOUNTER 2019-06-21 08:00 | Outpatient (CLI) | payer MEDICARE, BC | END 2019-06-21 23:59 | disposition home or self-care (01) | LOC: LAB.N 08:00 | PROVIDERS: ATTEND Internal Medicine | DX: Z79.01 Long term (current) use of anticoagulants (principal); I48.91 Unspecified atrial fibrillation | CPT/HCPCS: 85610 ==

== ENCOUNTER 2019-07-20 13:27 | Outpatient (CLI) | payer MEDICARE, BC | END 2019-07-20 23:59 | disposition home or self-care (01) | LOC: LAB.N 13:27 | PROVIDERS: ATTEND Internal Medicine | DX: I48.91 Unspecified atrial fibrillation (principal); Z79.01 Long term (current) use of anticoagulants | CPT/HCPCS: 85610 ==

== ENCOUNTER 2019-08-08 11:42 | Outpatient (CLI) | payer MEDICARE, BC | END 2019-08-08 23:59 | disposition home or self-care (01) | LOC: LAB.N 11:42 | PROVIDERS: ATTEND Internal Medicine | DX: I48.91 Unspecified atrial fibrillation (principal); Z79.01 Long term (current) use of anticoagulants | CPT/HCPCS: 85610 ==

== ENCOUNTER 2019-10-06 08:00 | Outpatient (CLI) | payer MEDICARE, BC ==
[2019-10-06 13:08] LABS: INR 4.2 (0.8-1.2); PT - PROTHROMBIN TIME 44.2 secs (9.9-12.6)
== END 2019-10-06 23:59 | disposition home or self-care (01) ==
LOC: LAB.WCP 08:00
PROVIDERS: ATTEND Internal Medicine
DX: I48.91 Unspecified atrial fibrillation (principal); Z79.01 Long term (current) use of anticoagulants
CPT/HCPCS: 36415; 85610

== ENCOUNTER 2019-10-12 11:18 | Outpatient (CLI) | payer MEDICARE, BC ==
[2019-10-12 13:58] LABS: INR 2.3 (0.8-1.2); PT - PROTHROMBIN TIME 25.1 secs (9.9-12.6)
== END 2019-10-12 23:59 | disposition home or self-care (01) ==
LOC: LAB.WCP 11:18
PROVIDERS: ATTEND Internal Medicine
DX: I48.91 Unspecified atrial fibrillation (principal); Z79.01 Long term (current) use of anticoagulants
CPT/HCPCS: 36415; 85610

== ENCOUNTER 2019-10-17 08:00 | Outpatient (CLI) | payer MEDICARE, BC ==
[2019-10-17 14:38] LABS: ALBUMIN 4.3 g/dL (3.2-5.5); ALBUMIN/GLOBULIN RATIO 1.5 (1.0-2.2); BILIRUBIN,TOTAL 2.1 mg/dL (0.2-1.0); CALCIUM 8.9 mg/dL (8.5-10.3); CREATININE 0.9 mg/dL (0.4-1.0); MAGNESIUM 2.1 mg/dL (1.7-2.8); TOTAL PROTEIN 7.2 g/dL (6.7-8.2)
== END 2019-10-17 23:59 | disposition home or self-care (01) ==
LOC: LAB.WCP 08:00
PROVIDERS: ATTEND Specialist
DX: I10 Essential (primary) hypertension (principal)
CPT/HCPCS: 36415; 80053; 83735